=== PATIENT | female | born 1975 | race Hispanic/Latino ===

== ENCOUNTER 2018-03-06 15:55 | Emergency (ER) | payer SELFPAY ==
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
== END 2018-03-06 17:07 | disposition home or self-care (01) ==
LOC: ER 15:55
DX: S00.90XA Unspecified superficial injury of unspecified part of head, initial encounter (principal); V59.40XA Driver of pick-up truck or van injured in collision with unspecified motor vehicles in traffic accident, initial encounter
CPT/HCPCS: 70450; 72125; 99284

== ENCOUNTER 2019-04-13 20:14 | Emergency (ER) | payer SELFPAY ==
--- OUTSIDE RECORDS SUMMARY | 2019-04-13 20:16 | XMS REPORT ---
:1975 [facility] [address] [place] [address] Care Team Providers Name Role Phone Unavailable Unavailable Unavailable Problems This patient has no known problems. Allergies, Adverse Reactions, Alerts This patient has no known allergies or adverse reactions. Medications This patient has no known medications. Results Test Description Test Time Test Comments Text Results Atomic Results Result Comments BREAST ULTRASOUND CORE 2019-04-02 09:31:55 - BREAST ULTRASOUND CORE BIOPSY BIOPSY RIGHT RIGHTULTRASOUND GUIDED BIOPSY RIGHT BREAST WITH MARKING DEVICE INSERTED AND POST DIGITAL MAMMOGRAPHIC AND ULTRASOUND IMAGIN03/25/2019CLINICAL: Ultrasound guided biopsy of palpable right breast mass, 3 o'clock position. Comparison is made to exam dated 03/06/2019 ultrasound - [facility]-. An ultrasound guided biopsy using real-time ultrasound was performed for the concerning mass located in the right breast at 3 o'clock, middle depth, 2 cm from the nipple. This was described on the previous ultrasound report. The skin was prepped in the usual manner. Local anesthetic was administered to the access site. A 14 gauge biopsy needle was placed adjacent to the abnormality through an introducer device under ultrasound guidance. Once the needle was documented to be in the correct location, multiple specimens were obtained using a BARD biopsy device. A ribbon shaped clip was inserted into the biopsy cavity. A sterile dressing was applied to the access site. Post procedure digital mammographic and ultrasound imaging demonstrates the clip at the targeted area. The specimens were sent to the laboratory for pathological analysis. IMPRESSION: ULTRASOUND GUIDED BIOPSY BENIGN Ultrasound guided biopsy of the mass in the right breast at 3 o'clock, middle depth, 2 cm from the nipple was successful with no apparent post procedure complications. 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 Negative for atypia/malignancy." Pathology results are concordant with imaging findings. A surgical consult is recommended. SUMMARY:Given pathology yielding granulomatous mastitis, a surgical consult is recommended. Rai Lee M.D. pl/:04/02/2019 09:31:55 Entry: cc - 04/02/2019 14:09:07copy to: Ms. Rachel Rod, [facility] [address], ATTN: Rachel Rod, ph: [phone], fax: [phone] Technologist: Lamar Lynn, [facility]-letter sent: Surgical Consult [facility] DIAG MAMM RIGHT DIGITAL 2019-03-25 09:13:35 - DIAG MAMM RIGHT DIGITALUNILATERAL RIGHT DIGITAL DIAGNOSTIC MAMMOGRAM POST-PROCEDURE IMAGING FOR MARKER PLACEMENT: 03/25/2019CLINICAL: Right post clip. Comparison is made to exam dated 03/06/2019 mammogram - [facility]-. The tissue of the right breast is heterogeneously dense. This may lower the sensitivity of mammography. There is a marker clip in the appropriate position in the right breast. This marker clip placement is at biopsy site. IMPRESSION: POST PROCEDURE IMAGING FOR MARKER PLACEMENTThere was a successful marker clip placement in the right breast. Rai Lee M.D. pl/:03/25/2019 09:13:35 copy to: Ms. Rachel Rod, [facility] [address], ATTN: Rachel Rod, ph: [phone], fax: [phone] Technologist: Rashaad WETZEL, [facility]-RGMammogram BI-RADS: Post-procedure mammogram for marker placement BREAST ULTRASOUND 2019-03-06 13:03:29 - DIAG MAMM BILATERAL MJ CAD BILATERAL DIGITALBILATERAL FIRST EVER DIGITAL DIAGNOSTIC MAMMOGRAM 3D/2D WITH CAD: 03/06/2019CLINICAL: Right palpable lump. Digital breast tomosynthesis was performed in addition to routine CC and MLO views. Current mammographic images were evaluated by either a [employer] M-Vu or a [employer] ImageChecker CAD (computer aided detection system). No prior exams were available for comparison. The tissue of both breasts is heterogeneously dense. This may lower the sensitivity of mammography. Possible masses are seen in both breasts, one of which corresponds to a palpable finding in the right breast. Ultrasound will performed to exclude an underlying mass. No other suspicious mass, architectural distortion, malignant type calcification, or lymph node abnormality detected. INCOMPLETE ASSESSMENT: ADDITIONAL IMAGING EVALUATION RECOMMENDEDAn ultrasound will be performed at this time for further evaluation. - BREAST ULTRASOUND BILATERALULTRASOUND OF BOTH BREASTS AND BOTH AXILLA: 03/06/2019No prior exams were available for comparison. Color flow and real-time ultrasound of both breasts and both axilla were performed. Subjacent to the area of palpable concern in the 3 o'clock, right breast, 2 cm from the nipple, there is a 2.8 cm mass with internal vascularity which is possibly intraductal in location. This corresponds with the mammographic mass. Ultrasound-guided biopsy is recommended.No additional significant sonographic findings in the remaining right breast, left breast or either axilla. Benign-appearing intramammary lymph node is noted in the 3 o'clock, left breast, 2 cm the nipple in addition to a benign-appearing subcentimeter nodule in the 11 o'clock, left breast, 6 cm the nipple, these correspond to mammographic masses.. IMPRESSION: SUSPICIOUS OF MALIGNANCY - FOLLOW-UP RECOMMENDEDRecommendation:1. Ultrasound guided biopsy of palpable right breast mass, 3 o'clock position.I have discussed my findings and recommendations with the patient, and an ultrasound-guided core biopsy will be scheduled by our Breast Center staff. Rai Lee M.D. pl/:03/06/2019 13:03:29 copy to: Ms. Rachel Rod, [facility] [address], ATTN: Rachel Rod, ph: [phone], fax: [phone] Technologist: Rashaad WETZEL, [facility]-RGletter sent: BIRADS 4/5 Biopsy Mammogram BI-RADS: 0 Indeterminate Ultrasound BI-RADS: 4c Suspicious abnormality - moderate concern but not classic for malignancy DIAG MAMM BILATERAL MJ 2019-03-06 13:03:29 - DIAG MAMM BILATERAL MJ CAD CAD DIGITAL DIGITALBILATERAL FIRST EVER DIGITAL DIAGNOSTIC MAMMOGRAM 3D/2D WITH CAD: 03/06/2019CLINICAL: Right palpable lump. Digital breast tomosynthesis was performed in addition to routine CC and MLO views. Current mammographic images were evaluated by either a [employer] M[employer]u or a [employer] ImageChecker CAD (computer aided detection system). No prior exams were available for comparison. The tissue of both breasts is heterogeneously dense. This may lower the sensitivity of mammography. Possible masses are seen in both breasts, one of which corresponds to a palpable finding in the right breast. Ultrasound will performed to exclude an underlying mass. No other suspicious mass, architectural distortion, malignant type calcification, or lymph node abnormality detected. INCOMPLETE ASSESSMENT: ADDITIONAL IMAGING EVALUATION RECOMMENDEDAn ultrasound will be performed at this time for further evaluation. - BREAST ULTRASOUND BILATERALULTRASOUND OF BOTH BREASTS AND BOTH AXILLA: 03/06/2019No prior exams were available for comparison. Color flow and real-time ultrasound of both breasts and both axilla were performed. Subjacent to the area of palpable concern in the 3 o'clock, right breast, 2 cm from the nipple, there is a 2.8 cm mass with internal vascularity which is possibly intraductal in location. This corresponds with the mammographic mass. Ultrasound-guided biopsy is recommended.No additional significant sonographic findings in the remaining right breast, left breast or either axilla. Benign-appearing intramammary lymph node is noted in the 3 o'clock, left breast, 2 cm the nipple in addition to a benign-appearing subcentimeter nodule in the 11 o'clock, left breast, 6 cm the nipple, these correspond to mammographic masses.. IMPRESSION: SUSPICIOUS OF MALIGNANCY - FOLLOW-UP RECOMMENDEDRecommendation:1. Ultrasound guided biopsy of palpable right breast mass, 3 o'clock position.I have discussed my findings and recommendations with the patient, and an ultrasound-guided core biopsy will be scheduled by our Breast Center staff. Rai Lee M.D. pl/:03/06/2019 13:03:29 copy to: Ms. Rachel Rod, [facility] [address], ATTN: Rachel Rod, ph: [phone], fax: [phone] Technologist: Rashaad WETZEL, [facility]-RGletter sent: BIRADS 4/5 Biopsy Mammogram BI-RADS: 0 Indeterminate Ultrasound BI-RADS: 4c Suspicious abnormality - moderate concern but not classic for malignancy
[2019-04-13] MEDS ORDERED: NA CHLORIDE 0.9% 500 ML ONE (21:59)
[2019-04-13] MEDS ORDERED: IBUPROFEN 400 MG TAB ONE (21:59)
[2019-04-13] MEDS ORDERED: NA CHLORIDE 0.9% 2,000 ML ONE (22:00)
[2019-04-13] MEDS ORDERED: Levofloxacin 750mg IV 750 MG/150 ML BAG IV ONE (22:00)
[2019-04-13] MEDS ORDERED: CEFTRIAXONE/SWI 1gm 1 GM/10 ML SYR ONE (22:00)
[2019-04-13 22:03] LABS: Urine Blood 2+ (NEG); Urine Glucose NEGATIVE (NEG); Urine Protein 2+ (NEG); Urine pH 5.5 (5.0-7.0)
[2019-04-13 22:04] LABS: Absolute Lymphocytes (CBC) 0.6 K/uL (0.7-4.9); Basophils % 0.4 % (0-1.3); Hematocrit 35.6 % (36.0-45.0); Lymphocytes % 5.5 % (15.3-44.8); MPV 9.7 fL (7.6-11.3); RBC Red Blood Cell Count 4.15 M/uL (3.86-4.86)
[2019-04-13 22:25] LABS: ALT/SGPT 12 U/L (12-78); AST/SGOT 7 U/L (15-37); Albumin 3.5 g/dL (3.4-5.0); Alkaline Phosphatase 69 U/L (45-117); BUN Blood Urea Nitrogen 7 mg/dL (7-18); Bicarbonate 23 mmol/L (21-32); Bilirubin Direct 0.1 mg/dL (0-0.2); Bilirubin Total 0.6 mg/dL (0.2-1.0); Glucose Level 108 mg/dL (74-106); Lipase 59 U/L (73-393); Magnesium 1.7 mg/dL (1.8-2.4); Potassium 3.2 mmol/L (3.5-5.1); Protein, Total 7.8 g/dL (6.4-8.2); Sodium Level 140 mmol/L (136-145); Troponin (Emerg Dept Use Only) < 0.02 ng/mL (0.0-0.045)
[2019-04-13 22:39] LABS: Blood Morphology Comment NOT SEEN (NOT SEEN); Platelet Estimate ADEQ; Toxic Granulation 1+; Urine White Blood Cell Casts OK
--- NOTE | 2019-04-13 22:51 | RAD REPORT ---
EXAM DESCRIPTION: RAD - Chest Single View - 04/13/2019 10:14 pm CLINICAL HISTORY: COUGH Chest pain. COMPARISON: <Comparisons> FINDINGS: Portable technique limits examination quality. The lungs are underinflated resulting in vascular crowding. The heart is normal in size. No displaced fractures. IMPRESSION: Underinflated lungs.
--- NOTE | 2019-04-14 00:32 | ER ---
Nurse's Notes [facility] Name: Silva Edwards Age: 43 yrs Sex: Female : 1975 Arrival Date: 04/13/2019 Time: 20:19 Bed 7 Private MD: Diagnosis: Fever, unspecified;Urinary tract infection, site not specified Presentation: 04/13 20:41 Presenting complaint: Patient states: fever started last night, burning with urination ak1 since last Saturday. 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 Transition of care: patient was not received from another setting of care. Onset of symptoms is unknown. Risk Assessment: Do you want to hurt yourself or someone else? Patient reports no desire to harm self or others. Initial Sepsis Screen: Does the patient meet any 2 criteria? No. Patient's initial sepsis screen is negative. Does the patient have a suspected source of infection? No. Patient's initial sepsis screen is negative. Care prior to arrival: None. 20:41 Method Of Arrival: Ambulatory ak1 20:41 Acuity: JEM 3 ak1 Triage Assessment: 20:42 General: Appears in no apparent distress. uncomfortable, Behavior is calm, cooperative. 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 - Social history:: Smoking status: Patient/guardian denies using tobacco. - Ebola Screening: : No symptoms or risks identified at this time. - Family history:: not pertinent. Screenin:12 Abuse screen: Denies threats or abuse. Nutritional screening: No deficits noted. jd3 Tuberculosis screening: No symptoms or risk factors identified. Fall Risk IV access (20 points). Ambulatory Aid- None/Bed Rest/Nurse Assist (0 pts). Gait- Normal/Bed Rest/Wheelchair (0 pts) Mental Status- Oriented to own ability (0 pts). Total Alonso Fall Scale indicates No Risk (0-24 pts). Assessment: 22:11 General: Appears in no apparent distress. uncomfortable, Behavior is calm, cooperative, jd3 appropriate for age. Pain: Complains of pain in chest Pain does not radiate. Quality of pain is described as aching, pressure. Neuro: Level of Consciousness is awake, alert, obeys commands, Oriented to person, place, time, situation. Cardiovascular: Capillary refill < 3 seconds Patient's skin is warm and dry. Rhythm is regular. Respiratory: Airway is patent Respiratory effort is even, unlabored, Respiratory pattern is regular, symmetrical, Denies cough, shortness of breath. GI: No signs and/or symptoms were reported involving the gastrointestinal system. : No signs and/or symptoms were reported regarding the genitourinary system. EENT: No signs and/or symptoms were reported regarding the EENT system. Derm: Skin is intact, Skin is dry, Skin is normal, Skin temperature is warm. Musculoskeletal: Circulation, motion, and sensation intact. Range of motion: intact in all extremities. 23:31 Reassessment: Patient and/or family updated on plan of care and expected duration. Pain tr5 level reassessed. Patient is alert, oriented x 3, equal unlabored respirations, skin warm/dry/pink. 04/14 00:03 Reassessment: Patient and/or family updated on plan of care and expected duration. Pain ea level reassessed. Patient is alert, oriented x 3, equal unlabored respirations, skin warm/dry/pink. Awaiting on CT results. 00:39 Reassessment: Patient and/or family updated on plan of care and expected duration. Pain ea level reassessed. Patient is alert, oriented x 3, equal unlabored respirations, skin warm/dry/pink. Discharge instruction given to patient, verbalized the understanding of instruction, no s/s of pain or discomfort noted at this time. Pt reports she is feeling better. Left ED ambulatory accompanied by family, pt tolerating well. Vital Signs: 04/13 20:41 BP 125 / 60; Pulse 117; Resp 20; Temp 100.0; Pulse Ox 98% on R/A; Weight 84.82 kg (R); ak1 Height 5 ft. 5 in. (165.10 cm) (R); Pain 6/10; 22:12 BP 101 / 61; Pulse 88; Resp 16 S; Pulse Ox 97% on R/A; jd3 23:32 BP 94 / 58; Pulse 75; Resp 20; Pulse Ox 98% ; tr5 04/14 00:30 BP 98 / 64; Pulse 70; Resp 18; Temp 98.5; Pulse Ox 99% ; ea 04/13 20:41 Body Mass Index 31.12 (84.82 kg, 165.10 cm) ak1 ED Course: 04/13 20:19 Patient arrived in ED. es 20:42 Triage completed. ak1 20:42 Arm band placed on Patient placed in waiting room, Patient notified of wait time. ak1 20:58 Ulises Neves MD is Attending Physician. alicia 21:20 Radiology exam delayed due to test not completed at this time. vm2 21:53 Eliot Garcia, SANDRA is Primary Nurse. jd3 22:08 Ulises Ramos PA is PHCP. cp 22:12 CT Stone Protocol In Process Unspecified. EDMS 22:12 Patient has correct armband on for positive identification. Placed in gown. Bed in low jd3 position. Call light in reach. Side rails up X2. Adult w/ patient. 22:15 XRAY Chest (1 view) In Process Unspecified. EDMS 04/14 00:27 No provider procedures requiring assistance completed. ea 00:40 IV discontinued, intact, bleeding controlled, No redness/swelling at site. Pressure ea dressing applied. Administered Medications: 04/13 21:53 Drug: NS 0.9% (30 ml/kg) 30 ml/kg Route: IV; Rate: bolus; Site: right antecubital; [facility] 04/14 00:00 Follow up: Response: No adverse reaction; IV Status: Completed infusion; IV Intake: ea 2500ml 04/13 21:53 Drug: Motrin 800 mg Route: PO; jd3 04/14 00:00 Follow up: Response: No adverse reaction ea 04/13 22:20 Drug: Rocephin - (cefTRIAXone) 1 grams Route: IVPB; Infused Over: 30 mins; Site: right jd3 antecubital; 04/14 00:00 Follow up: Response: No adverse reaction; IV Status: Completed infusion; IV Intake: 10mlea 04/13 22:23 Drug: levofloxacin 750 mg Volume: 150 ml; Route: IVPB; Infused Over: 90 mins; Site: [facility] right antecubital; 04/14 00:27 Follow up: Response: No adverse reaction; IV Status: Completed infusion ea 00:38 Drug: Magnesium 400 mg Route: PO; ea 00:38 Follow up: Response: Medication administered at discharge. ea 00:38 Drug: Potassium Effervescent Tablet 50 mEq Route: PO; ea 00:38 Follow up: Response: Medication administered at discharge. ea Intake: 00:00 IV: 10ml; Total: 10ml. ea 00:00 IV: 2500ml; Total: 2510ml. ea Outcome: 00:24 Discharge ordered by . cp 00:40 Discharged to home ambulatory, with family. ea 00:40 Condition: improved 00:40 Discharge instructions given to patient, Instructed on discharge instructions, follow up and referral plans. medication usage, Demonstrated understanding of instructions, follow-up care, medications, Prescriptions given X 2. 00:43 Patient left the ED. ea Signatures: Dispatcher [employer] Ulises Champagne MD MD cha Salyer, Edna es Krenek, Amber, RN RN ak1 Ulises Ramos PA PA cp McGuire, Victoria [facility] Lillian Escalante RN RN ea Davies, Jonathon, RN RN jRui Henning RN RN tr5
--- NOTE | 2019-04-14 00:35 | EDPHYS ---
Physician Documentation [facility] Name: Silva Edwards Age: 43 yrs Sex: Female : 1975 Arrival Date: 04/13/2019 Time: 20:19 Bed 7 Private MD: ED Physician Ulises Neves HPI: 04/13 21:13 This 43 yrs old Female presents to ER via Ambulatory with complaints of Fever, alicia Pain With Urination. 21:13 The patient reports fever, that was measured at 102 degrees Fahrenheit. Onset: The alicia symptoms/episode began/occurred 1 day(s) ago. Modifying factors: there are no obvious modifying factors. Associated signs and symptoms: Pertinent positives: cough, myalgias. Severity of symptoms: At their worst the symptoms were moderate in the emergency department the symptoms are unchanged. The patient has not experienced similar symptoms in the past. 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 - Social history:: Smoking status: Patient/guardian denies using tobacco. - Ebola Screening: : No symptoms or risks identified at this time. - Family history:: not pertinent. ROS: 21:13 Eyes: Negative for injury, pain, redness, and discharge, ENT: Negative for injury, alicia pain, and discharge, Neck: Negative for injury, pain, and swelling, Cardiovascular: Negative for chest pain, palpitations, and edema, Respiratory: Negative for shortness of breath, cough, wheezing, and pleuritic chest pain, : Negative for injury, bleeding, discharge, and swelling, MS/Extremity: Negative for injury and deformity, Skin: Negative for injury, rash, and discoloration, Neuro: Negative for headache, weakness, numbness, tingling, and seizure, Psych: Negative for depression, anxiety, suicide ideation, homicidal ideation, and hallucinations, Allergy/Immunology: Negative for hives, rash, and allergies, Endocrine: Negative for neck swelling, polydipsia, polyuria, polyphagia, and marked weight changes, Hematologic/Lymphatic: Negative for swollen nodes, abnormal bleeding, and unusual bruising. 21:13 Constitutional: Positive for body aches, chills, fever, malaise, poor PO intake. 21:13 Abdomen/GI: Positive for abdominal pain, nausea, of the right upper quadrant and left upper quadrant. 21:13 Back: Positive for decreased range of motion, flank pain, bilaterally. Exam: 21:13 Head/Face: Normocephalic, atraumatic. Eyes: Pupils equal round and reactive to light, alicia extra-ocular motions intact. Lids and lashes normal. Conjunctiva and sclera are non-icteric and not injected. Cornea within normal limits. Periorbital areas with no swelling, redness, or edema. ENT: Nares patent. No nasal discharge, no septal abnormalities noted. Tympanic membranes are normal and external auditory canals are clear. Oropharynx with no redness, swelling, or masses, exudates, or evidence of obstruction, uvula midline. Mucous membranes moist. Neck: Trachea midline, no thyromegaly or masses palpated, and no cervical lymphadenopathy. Supple, full range of motion without nuchal rigidity, or vertebral point tenderness. No Meningismus. Chest/axilla: Normal chest wall appearance and motion. Nontender with no deformity. No lesions are appreciated. Respiratory: Lungs have equal breath sounds bilaterally, clear to auscultation and percussion. No rales, rhonchi or wheezes noted. No increased work of breathing, no retractions or nasal flaring. Skin: Warm, dry with normal turgor. Normal color with no rashes, no lesions, and no evidence of cellulitis. MS/ Extremity: Pulses equal, no cyanosis. Neurovascular intact. Full, normal range of motion. Neuro: Awake and alert, GCS 15, oriented to person, place, time, and situation. Cranial nerves II-XII grossly intact. Motor strength 5/5 in all extremities. Sensory grossly intact. Cerebellar exam normal. Normal gait. 21:13 Constitutional: The patient appears febrile. 21:13 Abdomen/GI: Inspection: abdomen appears normal, Bowel sounds: normal, Palpation: mild abdominal tenderness, in the epigastric area, right upper quadrant and left upper quadrant, Liver: no appreciated palpable abnormalities, Hernia: not appreciated. Vital Signs: 20:41 BP 125 / 60; Pulse 117; Resp 20; Temp 100.0; Pulse Ox 98% on R/A; Weight 84.82 kg (R); ak1 Height 5 ft. 5 in. (165.10 cm) (R); Pain 6/10; 22:12 BP 101 / 61; Pulse 88; Resp 16 S; Pulse Ox 97% on R/A; jd3 23:32 BP 94 / 58; Pulse 75; Resp 20; Pulse Ox 98% ; tr5 04/14 00:30 BP 98 / 64; Pulse 70; Resp 18; Temp 98.5; Pulse Ox 99% ; ea 04/13 20:41 Body Mass Index 31.12 (84.82 kg, 165.10 cm) ak1 MDM: 04/13 20:[address] [facility] 04/14 00:23 Data reviewed: vital signs, nurses notes, lab test result(s), radiologic studies, CT cp scan, and as a result, I will discharge patient. 00:23 Counseling: I had a detailed discussion with the patient and/or guardian regarding: the cp historical points, exam findings, and any diagnostic results supporting the discharge/admit diagnosis, lab results, radiology results, the need for outpatient follow up, a family practitioner, to return to the emergency department if symptoms worsen or persist or if there are any questions or concerns that arise at home. Response to treatment: the patient's symptoms have markedly improved after treatment. 04/13 21:13 Order name: Basic Metabolic Panel [facility] 04/13 21:13 Order name: CBC with Diff [facility] 04/13 21:13 Order name: LFT's [facility] 04/13 21:13 Order name: Magnesium [facility] 04/13 21:13 Order name: Troponin (emerg Dept Use Only) [facility] 04/13 21:13 Order name: Lipase [facility] 04/13 21:13 Order name: Blood Culture Adult (2) [facility] 04/13 21:13 Order name: Lactate; Complete Time: 23:36 [facility] 04/13 23:36 Interpretation: Reviewed. 04/13 21:13 Order name: Procalcitonin; Complete Time: 23:36 [facility] 04/13 23:35 Interpretation: Abnormal: Procalcitonin 1.26. 04/13 21:13 Order name: Urine Culture [facility] 04/13 21:15 Order name: Basic Metabolic Panel; Complete Time: 23:36 EDMS 04/13 23:36 Interpretation: Normal except: K 3.2; GLUC 108; GFR 86. cp 04/13 21:16 Order name: CBC with Automated Diff; Complete Time: 23:36 [facility] 04/14 00:09 Interpretation: Normal except: WBC 11.1; HGB 11.9; HCT 35.6; WALTER% 89.5; LYM% 5.5; LYMA cp 0.6; NEUT A 9.9. 04/13 21:16 Order name: Liver (Hepatic) Function; Complete Time: 23:36 [facility] 04/13 21:16 Order name: Magnesium; Complete Time: 23:36 [facility] 04/13 23:35 Interpretation: Abnormal: MG 1.7. cp 04/13 21:13 Order name: XRAY Chest (1 view); Complete Time: 23:36 [facility] 04/13 21:13 Order name: EKG; Complete Time: 21:17 [facility] 04/13 21:13 Order name: Cardiac monitoring; Complete Time: 21:36 [facility] 04/13 21:13 Order name: CT Stone Protocol [facility] 04/13 21:16 Order name: Troponin (Emerg Dept Use Only); Complete Time: 23:36 [facility] 04/13 21:16 Order name: Lipase; Complete Time: 23:36 [facility] 04/13 21:50 Order name: Urine Dipstick--Ancillary (enter results); Complete Time: 22:04 [facility] 04/13 21:50 Order name: Urine --Ancillary (enter results); Complete Time: 22:04 [facility] 04/13 22:41 Order name: CBC Smear Scan; Complete Time: 23:36 [facility] 04/13 21:13 Order name: EKG - Nurse/Tech; Complete Time: 21:36 [facility] 04/13 21:13 Order name: IV Saline Lock; Complete Time: 21:53 [facility] 04/13 21:13 Order name: Labs collected and sent; Complete Time: 21:53 [facility] 04/13 21:13 Order name: O2 Per Protocol; Complete Time: 21:17 [facility] 04/13 21:13 Order name: O2 Sat Monitoring; Complete Time: 21:17 [facility] 04/13 21:13 Order name: Urine Dipstick-Ancillary (obtain specimen); Complete Time: 21:30 [facility] 04/13 21:13 Order name: Urine Test (obtain specimen); Complete Time: 21:30 [facility] Administered Medications: 04/13 21:53 Drug: NS 0.9% (30 ml/kg) 30 ml/kg Route: IV; Rate: bolus; Site: right antecubital; d3 04/14 00:00 Follow up: Response: No adverse reaction; IV Status: Completed infusion; IV Intake: ea 2500ml 04/13 21:53 Drug: Motrin 800 mg Route: PO; jd3 04/14 00:00 Follow up: Response: No adverse reaction ea 04/13 22:20 Drug: Rocephin - (cefTRIAXone) 1 grams Route: IVPB; Infused Over: 30 mins; Site: right [facility] antecubital; 04/14 00:00 Follow up: Response: No adverse reaction; IV Status: Completed infusion; IV Intake: 10mlea 04/13 22:23 Drug: levofloxacin 750 mg Volume: 150 ml; Route: IVPB; Infused Over: 90 mins; Site: [facility] right antecubital; 04/14 00:27 Follow up: Response: No adverse reaction; IV Status: Completed infusion ea 00:38 Drug: Magnesium 400 mg Route: PO; ea 00:38 Follow up: Response: Medication administered at discharge. ea 00:38 Drug: Potassium Effervescent Tablet 50 mEq Route: PO; ea 00:38 Follow up: Response: Medication administered at discharge. ea Disposition: 04/14/19 00:24 Discharged to Home. Impression: Fever, unspecified, Urinary tract infection, site not specified. - Condition is Fair. - Discharge Instructions: Dysuria, Fever, Adult, Urinary Tract Infection, Adult, Urinary Tract Infection, Adult, Ogme-rp-Wpow, Fever, Adult, Vbno-ng-Lmay. - Prescriptions for Cipro 500 mg Oral Tablet - take 1 tablet by ORAL route every 12 hours for 10 days; 20 tablet. Zofran 4 mg Oral Tablet - take 1 tablet by ORAL route every 12 hours As needed; 20 tablet. - Medication Reconciliation Form, Thank You Letter, Antibiotic Education, Prescription Opioid Use form. - Follow up: Private Physician; When: 5 - 6 days; Reason: Recheck today's complaints, Continuance of care, Re-evaluation by your physician. - Problem is new. - Symptoms have improved. Addendum: 04/15/2019 06:19 Co-signature as Attending Physician, Ulises Neves MD I agree with the assessment and c bunch plan of care. Signatures: Dispatcher [employer] EDMS Ulises Neves MD MD cha Krenek, Amber RN RN ak1 Ulises Ramos PA PA cp Antunez, Elena, RN RN Eliot Deluca RN RN jd3 Corrections: (The following items were deleted from the chart) 04/14 00:09 04/13 23:35 Normal except: WBC 11.1; HGB 11.9; HCT 35.6. cp cp 04/14 00:43 00:24 04/14/2019 00:24 Discharged to Home. Impression: Fever, unspecified; Urinary ea tract infection, site not specified. Condition is Fair. Discharge Instructions: Dysuria, Fever, Adult, Urinary Tract Infection, Adult, Urinary Tract Infection, Adult, Cnld-wz-[id number], Fever, Adult, Lpyw-wt-Ayln. Prescriptions for Levaquin 750 mg Oral Tablet - take 1 tablet by ORAL route once daily for 8-10 days; 9 tablet, Bactrim DS 800-160 mg Oral Tablet - take 1 tablet by ORAL route every 12 hours for 5 days; 10 tablet. and Forms are Medication Reconciliation Form, Thank You Letter, Antibiotic Education, Prescription Opioid Use. Follow up: Private Physician; When: 5 - 6 days; Reason: Recheck today's complaints, Continuance of care, Re-evaluation by your physician. Problem is new. Symptoms have improved. cp
[2019-04-14] MEDS ORDERED: POTASSIUM 25 MEQ EFFERV TAB ONE (00:47)
[2019-04-14] MEDS ORDERED: MAGNESIUM OXIDE 400 MG TAB ONE (00:47)
--- NOTE | 2019-04-14 10:39 | EKG ---
Test Date: 2019-04-13 Test Time: 21:26:48 Chief Electrician: ANDREA MEASUREMENT RESULTS: Intervals: Rate: 101 [place]: 158 QRSD: 80 QT: 316 QTc: 409 [place]: P: 54 [place]: 158 QRS: -8 T: 27 INTERPRETIVE STATEMENTS: Sinus tachycardia Minimal voltage criteria for LVH, may be normal variant Borderline ECG No previous ECG available for comparison Electronically Signed On 04-14-19 10:38:12 CDT by James Wagner
--- NOTE | 2019-04-14 11:17 | RAD REPORT ---
EXAM DESCRIPTION: Stone Protocol CLINICAL HISTORY: Dysuria. Fever. Assess for obstructive uropathy. TECHNIQUE: CT scan of the abdomen and pelvis was performed without intravenous contrast. Stone yogesh col was utilized. 3.0 mm axial images were obtained along with coronal and sagittal reformatted pricilla ges. DOSE OPTIMIZATION: This facility uses dose optimization techniques as appropriate to perform exams, including at least one of the following techniques: 1. Automated exposure control. 2. Adjustment of the mA and/or kV according to patient size (this includes techniques or standardized protocols for targeted exams where dose is matched to the indication/reason for exam, i.e. extremiti es or head). 3. Use of iterative reconstructive technique. COMPARISON: None. FINDINGS: Lung Bases: Normal. Liver: There is diffuse fatty liver infiltration. Spleen: Normal. Pancreas: Normal. Gallbladder: There is evidence of cholelithiasis. Adrenal Glands: Normal. Right Kidney: Normal. Left Kidney: Normal. Right Ureter: Normal. Left Ureter: Normal. Urinary Bladder: Normal. Retroperitoneal Structures: Normal. Bowel Survey: There is a moderate amount residual stool within the ascending and transverse colon. Th e distal ileum is unremarkable. The appendix is unremarkable. Uterus and Adnexa: Normal. Peritoneal Cavity: Normal. Mesenteric Structures: Normal. Abdominal Wall: No hernia. Bony Structures: No suspicious lesions. 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 IMPRESSION: 1. Diffuse fatty liver infiltration. 2. Cholelithiasis. 3. Moderate amount residual stool within the ascending and transverse colon. 4. Intrasacral meningocele. Electronically signed by: Berry Garcia MD 04/13/2019 10:22 PM CDT Due to temporary technical issues with the PACS/Fluency reporting system, reports are being signed by the in house radiologist as a courtesy to ensure prompt reporting. The interpreting radiologist is f ully responsible for the content of the report.
== END 2019-04-14 00:43 | disposition home or self-care (01) ==
LOC: ER 20:14
DX: N39.0 Urinary tract infection, site not specified (principal)
CPT/HCPCS: 36415; 71045; 74176; 76377; 80048; 80076; 81003; 81025; 83605; 83690; 83735; 84145; 84484; 85025; 87040; 87077; 87086; 87088; 87186; 93005; 96365; 96367; 99283; J0696; J7030

== ENCOUNTER 2019-10-16 09:49 | Emergency (ER) | payer SELFPAY ==
--- OUTSIDE RECORDS SUMMARY | 2019-10-16 09:51 | XMS REPORT ---
:1975 [facility] [address] [place] [address] Care Team Providers Name Role Phone Unavailable [...] to exam dated 03/06/2019 ultrasound - [facility]-. An ultrasound guided biopsy using [...] - 04/02/2019 14:09:07copy to: Ms. Rachel Rod, [facility] [address], ATTN: Rachel Rod, ph: [phone], fax: [phone] Technologist: Lamar Lynn, [facility]-letter sent: Surgical Consult [facility] DIAG MAMM RIGHT DIGITAL 2019-03-25 09:13:35 - DIAG MAMM RIGHT DIGITALUNILATERAL RIGHT DIGITAL DIAGNOSTIC MAMMOGRAM POST-PROCEDURE IMAGING FOR MARKER PLACEMENT: 03/25/2019CLINICAL: Right post clip. Comparison is made to exam dated 03/06/2019 mammogram - [facility]-. The tissue of the right [...] pl/:03/25/2019 09:13:35 copy to: Ms. Rachel Rod, [facility] [address], ATTN: Rachel Rod, ph: [phone], fax: [phone] Technologist: Rashaad WETZEL, [facility]-RGMammogram BI-RADS: Post-procedure mammogram for marker placement BREAST ULTRASOUND 2019-03-06 13:03:29 - DIAG MAMM BILATERAL MJ CAD BILATERAL DIGITALBILATERAL FIRST EVER DIGITAL DIAGNOSTIC MAMMOGRAM 3D/2D WITH CAD: 03/06/2019CLINICAL: Right palpable lump. Digital breast tomosynthesis was performed in addition to routine CC and MLO views. Current mammographic images were evaluated by either a [employer] M-Vu or a [employer] ImageChecker CAD (computer aided detection system). No [...] pl/:03/06/2019 13:03:29 copy to: Ms. Rachel Rod, [facility] [address], ATTN: Rachel Rod, ph: [phone], fax: [phone] Technologist: Rashaad WETZEL, [facility]-RGletter sent: BIRADS 4/5 Biopsy Mammogram [...] mammographic images were evaluated by either a [employer] M-Vu or a [employer] ImageChecker CAD (computer [...] pl/:03/06/2019 13:03:29 copy to: Ms. Rachel Rod, [facility] [address], ATTN: Rachel Rod, ph: [phone], fax: [phone] Technologist: Rashaad WETZEL, [facility]-RGletter sent: BIRADS 4/5 Biopsy Mammogram BI-RADS: 0 Indeterminate Ultrasound BI-RADS: 4c Suspicious abnormality - moderate concern but not classic for malignancy
--- OUTSIDE RECORDS SUMMARY | 2019-10-16 09:52 | XMS REPORT | Summary of Care ---
:1975 Author Organization [facility] Address [address] [place] [address] Care Team Providers Name Role Phone Alena Martins [facility] Primary Care Provider Reason for Visit Reason Comments Results Encounter Details Date Type Department Care Team Description 04/17/2019 Telephone [facility] [place] Alena Martins, Results [address] [place] [address] [address] [facility] [phone] [place] [address] Allergies No Known Allergiesdocumented as of this encounter (statuses as of 04/20/2019) Medications Not on filedocumented as of this encounter (statuses as of 04/20/2019) Active Problems Problem Noted Date Well woman exam 02/02/2019 Contraceptive management 02/02/2019 Obesity (BMI 30-39.9) 02/02/2019 Lump of right breast 02/02/2019 Obesity in 02/02/2019 documented as of this encounter (statuses as of 04/20/2019) Social History Tobacco Use Types Packs/Day Years Used Date Never Smoker Smokeless Tobacco: Never Used Alcohol Use Drinks/Week oz/Week Comments No Sex Assigned at Date Recorded Not on file Job Start Date Occupation Industry Not on file Not on file Not on file Travel History Travel Start Travel End No recent travel history available. documented as of this encounter Last Filed Vital Signs Not on filedocumented in this encounter Plan of Treatment Health Maintenance Due Date Last Done Comments DTaP,Tdap,and Td Vaccines ( - 1995 Tdap) MAMMOGRAM 2016 INFLUENZA VACCINE 05/24/2019 PAP SMEAR 02/02/2022 02/02/2019 PNEUMOCOCCAL 0-64 YEARS COMBINED Aged Out No longer eligible based on SERIES patient's age to complete this topic documented as of this encounter Results Not on filedocumented in this encounter Insurance Payer Benefit Plan / Subscriber ID Effective Dates Phone Address Type Group [facility] FAMILY PLANNING [id number] 2019-Jeanne [employer] PL[employer] [address] [phone] nt [id number] [place] [address] documented as of this encounter Advance Directives Name Relationship Healthcare Agent Communication Relationship Danial Perkins Significant Other Primary healthcare agent
--- OUTSIDE RECORDS SUMMARY | 2019-10-16 09:52 | XMS REPORT | Summary of Care ---
:1975 Author Organization [facility] Address [address] [place] [address] Care Team Providers Name Role Phone Alena Martins [facility] Primary Care Provider Reason for Visit Reason Comments Results Encounter Details Date Type Department Care Team Description 04/17/2019 Telephone [facility] [place] Alena Martins, Results [address] [place] [address] [address] [facility] [phone] [address] Allergies No Known Allergiesdocumented as of this encounter (statuses as of 04/17/2019) Medications Not on filedocumented as of this encounter (statuses as of 04/17/2019) Active Problems Problem Noted Date Well woman exam 02/02/2019 Contraceptive management 02/02/2019 Obesity (BMI 30-39.9) 02/02/2019 Lump of right breast 02/02/2019 Obesity in 02/02/2019 documented as of this encounter (statuses as of 04/17/2019) Social History Tobacco Use Types Packs/Day Years [...] ID Effective Dates Phone Address Type Group [facility] [employer]ILY FAMILY PLANNING [id number] 2019-Jeanne [employer] [address] [phone] nt [phone] [place] [address] documented as of this encounter Advance Directives Name Relationship Healthcare Agent Communication Relationship Danial Perkins Significant Other Primary healthcare agent
--- OUTSIDE RECORDS SUMMARY | 2019-10-16 09:52 | XMS REPORT | Summary of Care ---
:1975 Author Organization [facility] Address [address] [place] [address] Care Team Providers Name Role Phone Alena Martins [facility] Primary Care Provider Reason for Visit Reason Comments Results Encounter Details Date Type Department Care Team Description 04/17/2019 Telephone [facility] [place] Alena Martins, Results [address] [place] [address] [address] [facility] [phone] [place] [address] Allergies No Known Allergiesdocumented as [...] ID Effective Dates Phone Address Type Group [facility] FAMILY FAMILY PLANNING [id number] 2019-Jeanne [employer] [address] [address] nt [phone] [place] [address] documented as of this encounter Advance Directives Name Relationship Healthcare Agent Communication Relationship Danial Perkins Significant Other Primary healthcare agent
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
[2019-10-16 11:09] VITALS: BP 135/73; TEMP 98.2; O2SAT 100
== END 2019-10-16 11:03 | disposition home or self-care (01) ==
LOC: ER 09:49
DX: S16.9XXA Unspecified injury of muscle, fascia and tendon at neck level, initial encounter (principal); R07.89 Other chest pain; V43.72XA Person on outside of car injured in collision with other type car in traffic accident, initial encounter; Y93.89 Activity, other specified; Y92.410 Unspecified street and highway as the place of occurrence of the external cause
CPT/HCPCS: 70450; 71046; 72125; 99283